=== PATIENT | female | born 1995 | race Caucasian/White ===

== ENCOUNTER → 2022-05-27 15:34 | Outpatient (BNVA) | payer OTHER, SELFPAY | PROVIDERS: Visit Provider Physician Assistant Surgical ==

== ENCOUNTER → 2022-06-06 15:08 | Outpatient (BNVA) | payer OTHER, SELFPAY | PROVIDERS: PCP Internal Medicine; Visit Provider Physician Assistant Surgical | DX: E66.01 Morbid (severe) obesity due to excess calories (principal); Z68.41 Body mass index [BMI] 40.0-44.9, adult | CPT/HCPCS: 99202 ==

== ENCOUNTER → 2022-06-22 14:19 | Outpatient (BNVA) | payer OTHER, SELFPAY | PROVIDERS: PCP Internal Medicine; Visit Provider Dietitian, Registered | DX: E66.01 Morbid (severe) obesity due to excess calories (principal); Z71.3 Dietary counseling and surveillance | CPT/HCPCS: 97802 ==

== ENCOUNTER 2022-06-27 14:27 | Outpatient (REF) | payer OTHER, SELFPAY ==
[2022-06-27 16:14] LABS: MANUAL DIFF FLAG NO
[2022-06-27 16:22] LABS: Basophils Absolute Auto 0.1 X10*3/uL (0.0-0.2); Basophils Percent Auto 0.6 % (0-2); Eosinophils Absolute Auto 0.3 X10*3/uL (0.0-0.4); Hematocrit 41.5 % (37.0-47.0); Hemoglobin 13.5 g/dl (12.0-16.0); Imm Gran Abs Auto 0.03 X10*3/uL (0.00-0.03); Imm Gran Pct Auto 0.3 % (0.0-0.4); Lymphocytes Absolute Auto 3.1 X10*3/uL (1.2-4.9); Lymphocytes Percent Auto 28.7 % (20-40); Mean Corpuscular HGB Conc 32.5 g/dl (31.0-35.0); Mean Corpuscular Hemoglobin 27.4 pg (27.0-33.0); Mean Corpuscular Volume 84.3 fL (80.0-98.0); Mean Platelet Volume 9.7 fL (9.4-12.3); Monocytes Absolute Auto 0.9 X10*3/uL (0.1-1.2); Monocytes Percent Auto 7.9 % (2-11); Neutrophils Absolute Auto 6.4 x10*3/uL (2.0-8.3); Neutrophils Percent Auto 59.5 % (45-73); Platelet Count 417 X10*3/uL (160-400); Red Blood Count 4.92 X10*6/uL (4.20-5.50); Red Cell Distribution Width 13.6 % (11.0-16.0); White Blood Count 10.8 X10*3/uL (4.8-10.8)
[2022-06-27 16:30] LABS: Estimated Average Glucose 88 mg/dL; Hemoglobin A1c % 4.7 %
[2022-06-27 17:46] LABS: Alanine Aminotransferase 17 U/L (0-31); Albumin Level 4.3 g/dL (3.5-5.0); Alkaline Phosphatase 90 U/L (39-117); Anion Gap 13 (12-20); Aspartate Amino Transferase 17 U/L (5-31); Bilirubin Total 0.9 mg/dL (0.0-1.0); Blood Urea Nitrogen 13 mg/dL (9-16); C Reactive Protein 1.09 mg/dL (< or = 0.50); Calcium 9.6 mg/dL (8.4-10.2); Carbon Dioxide 26 mmol/L (22-29); Chloride 106 mmol/L (96-108); Cholesterol 179 mg/dL; Estimated Glomerular Filt Rate > 60; Glucose Random 86 mg/dL (60-115); HDL Cholesterol 42 mg/dL; Iron 40 mcg/dL (30-160); LDL Cholesterol Calculated 128 mg/dl; Percent Iron Saturation 11 % (15-50); Potassium 4.3 mmol/L (3.3-5.1); Sodium 141 mmol/L (135-145); Total Iron Binding Capacity 361 mcg/dL (228-428); Total Protein 7.1 g/dL (6.5-8.0); Triglycerides 46 mg/dL; Unsaturated Iron Binding 321 ug/dL
[2022-06-27 18:13] LABS: Ferritin 38 ng/mL (10-122); Folate 16.1 ng/mL (> or = 4.0); Insulin 6 uU/mL (2-29); TSH reflex Free T4 0.82 uIU/mL (0.32-4.0); Vitamin B12 744 pg/mL (200-900); Vitamin D 25-OH Total 27.2 ng/mL (>30)
[2022-06-28 15:28] LABS: H Pylori Breath Test Negative (Negative)
[2022-06-29 14:28] LABS: Calcium (PTHI) 9.9 mg/dL (8.6-10.2); PTHI 35 pg/mL (16-77)
[2022-07-01 01:44] LABS: Zinc 61 mcg/dL (60-130)
[2022-07-02 01:05] LABS: Vitamin A 38 mcg/dL (38-98)
[2022-07-02 15:39] LABS: Vitamin B1 9 nmol/L (8-30)
== END 2022-06-27 14:28 | disposition home or self-care (01) ==
LOC: HO.LAB 14:27
PROVIDERS: Visit Provider Physician Assistant Surgical
DX: Z01.818 Encounter for other preprocedural examination (principal); E66.01 Morbid (severe) obesity due to excess calories; Z71.3 Dietary counseling and surveillance; Z68.41 Body mass index [BMI] 40.0-44.9, adult
CPT/HCPCS: 36415; 80053; 80061; 82306; 82607; 82728; 82746; 83013; 83036; 83525; 83540; 83970; 84425; 84443; 84590; 84630; 85025; 86140; 99211; 99212

== ENCOUNTER 2022-06-29 13:53 | Outpatient (REF) | payer OTHER, SELFPAY ==
--- NOTE | ~2022-06-29 | XR_ITS ---
EXAMINATION: XR CHEST CLINICAL INFORMATION: Morbid/severe obesity due to excess calories COMPARISON: None available. TECHNIQUE: 2 views of the chest were obtained. FINDINGS: No significant abnormality is noted involving the heart, lungs, mediastinum, bony thorax or soft tissues. XR/XR chest 2V IMPRESSION: Unremarkable chest examination.
--- NOTE | 2022-06-29 14:51 | ECG_ITS ---
Test Reason : obesity Blood Pressure : / mmHG Vent. Rate : 065 BPM Atrial Rate : 065 BPM P-R Int : 112 ms QRS Dur : 076 ms QT Int : 422 ms P-R-T Axes : 014 020 -04 degrees QTc Int : 438 ms Normal sinus rhythm Normal ECG When compared with ECG of 28-SEP-2014 16:21, Vent. rate has decreased BY 41 BPM Referred By: Juan Mkai Electronically Signed By:Glenn Lemon
== END 2022-06-29 13:54 | disposition home or self-care (01) ==
LOC: HO.XRAY 13:53
PROVIDERS: Visit Provider Physician Assistant Surgical
DX: E66.01 Morbid (severe) obesity due to excess calories (principal)
CPT/HCPCS: 71046; 93005

== ENCOUNTER → 2022-07-06 11:58 | Outpatient (BNVA) | payer OTHER, SELFPAY | PROVIDERS: Referring Provider Physician Assistant Surgical; Visit Provider Counselor Mental Health ==

== ENCOUNTER 2022-08-02 08:10 | Outpatient (REF) | payer OTHER, SELFPAY ==
--- NOTE | ~2022-08-02 | FL_ITS ---
EXAMINATION: XR FLUOROSCOPY UPPER GI WITH AIR CLINICAL INFORMATION: Morbid/severe obesity due to excess calories COMPARISON: None available. TECHNIQUE: Routine upper GI air-contrast study was performed in upright and lying position. FINDINGS: Following oral administration of thick barium and effervescent granules is normal antegrade propagation bolus from the oral cavity through the pharynx, esophagus into stomach without any evidence of obstruction, narrowing or stricture. On placing patient supine and prone lying the course, caliber and peristalsis of the stomach, duodenal bulb and the sweep is normal. There is large gastroesophageal reflux and a small sliding hiatal hernia. The mucosal pattern of the stomach, duodenal bulb and sweep is normal. A moderate FLUOROSCOPY TIME: 1.6 minutes DOSE AREA PRODUCT: 179.584 uGy-m2 (microgray-meter squared) FL/FL upper GI w air IMPRESSION: Moderate gastroesophageal reflux and a small hiatal hernia.
--- NOTE | ~2022-08-02 | US_ITS ---
EXAMINATION: US COMPLETE ABDOMEN WITH LIVER ELASTOGRAPHY CLINICAL INFORMATION: Obesity COMPARISON: None available. TECHNIQUE: Real-time imaging of the abdominal viscera. Noninvasive ultrasound liver fibrosis assessment is performed using Ming ElastPQ point quantification shear wave elastography (2D-SWE) with a C5-2 MHz transducer. Multiple elastography samples are obtained. FINDINGS: PANCREAS: Normal. ABDOMINAL AORTA: The proximal, middle, and distal aortic segments are normal in caliber. INFERIOR VENA CAVA: Visualized portions are normal. LIVER: Liver echotexture is slightly increased. The liver is normal in size and contour. No focal lesion or intrahepatic biliary duct dilatation. The right lobe measures 18 cm in length. The left lobe measures 14 cm in length. Portal flow is normal/hepatopedal Shear wave liver elastography median stiffness is 1.3 m/s (reference: normal median stiffness is 1.3 m/s or less). IQR/median stiffness to assess sampling precision is 0.07 (reference: good quality data set is IQR/median stiffness of 0.15 or less). GALLBLADDER: Normal. The gallbladder is physiologically distended without evidence of stones, sludge, polyps, wall thickening or pericholecystic fluid. COMMON BILE DUCT: Normal in caliber measuring 0.1 cm in diameter. RIGHT KIDNEY: Normal. No hydronephrosis. No renal calculi or focal parenchymal lesions. The kidney measures 11 cm in maximum dimension. LEFT KIDNEY: Normal. No hydronephrosis. No renal calculi or focal parenchymal lesions. The kidney measures 12 cm in maximum dimension. SPLEEN: Slightly enlarged. The spleen measures 14 cm in maximum dimension. FREE FLUID: None. US/US abdomen comp w elastography IMPRESSION: 1. Impression: Slightly echogenic liver probably representing fatty infiltration. Slightly enlarged spleen. 2. Liver elastography: Adequate liver sampling. Normal liver stiffness. REFERENCE: Society of Radiologists in Ultrasound Liver Stiffness Thresholds (2020): LIVER STIFFNESS THRESHOLDS: *Liver Stiffness equal or less than 1.3 m/s: High probability of being normal. *Liver Stiffness less than 1.7 m/s: In the absence of other known clinical signs, rules out compensated advanced chronic liver disease. *Liver Stiffness 1.7-2.1 m/s: Suggestive of compensated advanced chronic liver disease but need further test for confirmation. *Liver Stiffness over 2.1 m/s: Rules in compensated advanced chronic liver disease. *Liver Stiffness over 2.4 m/s: Suggestive of clinically significant portal hypertension. QUALITY OF DATA SET: *IQR/Median value equal or less than 0.15 implies a quality data set. *IQR/Median value over 0.15 implies a poor quality data set. SIGNIFICANT CHANGE FROM PRIOR EXAM: Significant change if liver stiffness measurement is 10% or greater from prior exam. OTHER CONSIDERATIONS: The stage of liver fibrosis may be overestimated in the setting of acute hepatitis, liver inflammation, elevated liver function tests, hepatic vascular congestion, obstructive cholestasis, non-fasting state, and infiltrative diseases such as amyloidosis and lymphoma. In some patients with NAFLD, the liver stiffness thresholds for compensated advanced chronic liver disease may be lower. In causes other than viral hepatitis and NAFLD, liver stiffness thresholds are not well established.
== END 2022-08-02 08:11 | disposition home or self-care (01) ==
LOC: HO.US 08:10
PROVIDERS: Visit Provider Physician Assistant Surgical
DX: Z01.818 Encounter for other preprocedural examination (principal); E66.01 Morbid (severe) obesity due to excess calories; K21.9 Gastro-esophageal reflux disease without esophagitis
CPT/HCPCS: 74246; 76705; 76981

== ENCOUNTER → 2022-08-11 12:02 | Outpatient (BNVA) | payer OTHER, SELFPAY | PROVIDERS: Visit Provider Physician Assistant Surgical | DX: E66.01 Morbid (severe) obesity due to excess calories (principal); Z68.41 Body mass index [BMI] 40.0-44.9, adult | CPT/HCPCS: 99212 ==

== ENCOUNTER → 2022-08-15 14:52 | Outpatient (BNVA) | payer OTHER, SELFPAY | PROVIDERS: Visit Provider Dietitian, Registered | DX: E66.01 Morbid (severe) obesity due to excess calories (principal) | CPT/HCPCS: 97803 ==

== ENCOUNTER → 2022-08-22 11:30 | Outpatient (BNVA) | payer OTHER, SELFPAY | PROVIDERS: Visit Provider Counselor Mental Health ==

== ENCOUNTER → 2022-09-05 13:39 | Outpatient (BNVA) | payer OTHER, SELFPAY | PROVIDERS: Visit Provider Physician Assistant Surgical | DX: E66.9 Obesity, unspecified (principal); Z68.39 Body mass index [BMI] 39.0-39.9, adult | CPT/HCPCS: 99212 ==

== ENCOUNTER 2022-11-16 08:19 | Outpatient (AMB) | payer OTHER, SELFPAY ==
--- NOTE | 2022-11-16 10:13 | A.OFFVIS_ITS ---
Intake VS Expanded 11/16/22 10:37 Height 5 ft 1.5 in Weight 212 lb BMI 39.4 Body Fat 109.6 Body Fat Percentage 51.7 Free Fat Mass 102.4 Visceral Mass 21 Water Mass 70.1 BMR 1,374 Intake Visit Reasons: TV Consult/Transfer Juan Allergies No Known Allergies [No Known Allergies*] Allergy (Verified 11/16/22 10:13) Medication List - Last Reconciled 11/16/22 by Ace Mac MD HPI TV Consult/Transfer Juan HPI Details Start time: 10.04am, End time: 10.44am ?I spent 35 minutes speaking with the patient on the phone plus an additional 5 minutes reviewing and updating records for a total of 40 minutes HPI Comments History of Present Illness Details Overall weight loss: 23.2lbs, or 9.86% TBWL Is doing 2-3 Orgain protein shakes (1 scoop each in 8oz almond milk), 1 Zone Perfect protein bar and one meal (8 forks of protein and 8 forks of salad or vegetables) Exercise: walking outside for 30-60min PFSH Surgical History Hx of section Hx of oral surgery Family History Mother No problems noted. Father High cholesterol Sister No problems noted. Brother No problems noted. Daughter No problems noted. Daughter No problems noted. Social History Alcohol intake: never Patient Tobacco Use Status: Never used Tobacco Physical Exam Vital Signs: BMI result Body Mass Index 39.4 Assessment & Plan Assessment & Plan (1) Morbid obesity: Code(s): E66.01 - Morbid (severe) obesity due to excess calories Plan: 1. Plan for lap sleeve gastrectomy including upper GI endoscopy. All tests has been completed and reviewed and the patient is cleared for the surgery. ?If diaphragmatic or ventral hernias are present at time of surgery, these will be repaired laparoscopically as well. Risks and complications were discussed in detail including possible conversion to an open procedure, anastomotic leak, bleeding requiring transfusion, small bowel obstruction, , DVT and pulmonary embolism, cardiac, or pulmonary complications, as senior care complications such as anastomotic ulcer, insufficient weight loss and vitamin deficiencies. I emphasized the importance of close follow-up, adherence to instructions and good communication. So far she has proven to be an excellent communicator and very compliant with all our directions accomplishing a great weight loss. I believe that she is an excellent candidate and she is ready. 2. Change nutritional plan to 2 Orgain protein shakes (1 scoop each in 8oz almond milk), 1 Zone Perfect protein bar and one meal (8 forks of protein and 8 forks of salad or vegetables) AND one more Zone Perfect protein bar after dinner 3. Exercise: continue walking outside. Goal is to burn 2000 calories per week on exercise, which means either 300 calories daily, or 400 calories 5 days per week, or 500 calories 4 days per week, or 650 calories 3 days per week. 4. Alternatively purchase a stationary bike, elliptical or treadmill at home that can track calories. Let me know if you do so I can give you an exercise plan. 5. Send me weight measurements weekly on Wednesdays Telehealth Telehealth Location of provider rendering services: practice address Location of patient: address on file Patient Identification confirmed using: Name, : Yes Telehealth method: voice only Patient verbally consented to treatment: Yes Patient verbally consented to billing insurance company: Yes Patient informed of any privacy concerns related to visit: Yes Minutes spent on Phone/Video with Pt.: 40 Coding Level of Care Code Tele Est Pt Level 4 (86339) Diagnoses Morbid obesity E66.01 Time Spent (min) 40
[2022-11-16 10:37] VITALS: BMI 39.4
== END 2022-11-16 10:45 | disposition home or self-care (01) ==
LOC: HO.HBS 08:19
PROVIDERS: Visit Provider Surgery
DX: E66.01 Morbid (severe) obesity due to excess calories (principal)
CPT/HCPCS: 99214

== ENCOUNTER → 2022-11-16 08:19 | Outpatient (BNVA) | payer OTHER, SELFPAY | PROVIDERS: Visit Provider Surgery ==

== ENCOUNTER → 2023-01-10 13:41 | Outpatient (BNVA) | payer OTHER, SELFPAY | PROVIDERS: Visit Provider Physician Assistant Surgical ==

== ENCOUNTER 2023-01-12 10:33 | Outpatient (AMB) | payer OTHER, SELFPAY ==
--- NOTE | 2023-01-12 10:46 | MHC.WMTHER ---
Intake Intake Visit Reasons: VIDEO f/u Allergies No Known Allergies [No Known Allergies*] Allergy (Verified 01/10/23 13:52) PFSH Surgical History Hx of section Hx of oral surgery Family History Mother No problems noted. Father High cholesterol Sister No problems noted. Brother No problems noted. Daughter No problems noted. Daughter No problems noted. Social History Alcohol intake: never Patient Tobacco Use Status: Never used Tobacco Behavioral Health Assessment Weight Management Therapy Therapy Notes Details Pt stated that was off track for a few months, she realized that she started binge eating and emotionally eating again, really believes it to be important to address that symptom so that she can be successful. Often times, pt reported that she doesnt even know what she is feeling and why she is doing it. Completed body scan exercise and light stream, she identified how overwhelmed, heavy, and tense she feels, in her chest, neck, shoulders and back. Reported improvement after completing visualization breathing technique. Also talked about where she is keeping these snack foods she eats, some are right on her counter in glass containers. Patient was suggested to remove all foods from eye level or in focus that she does not want to eat. Patient reported looking to have weight loss surgery to help improve her health and quality of life. Pt reported 6 months ago she was staking medication for depression but stopped it because she did not find it helpful. She reported that she is always tired, miserable, irritable, freaks out easily when overwhelmed . She reported depression and anxiety since age 17. Pt stated that she does feel more motivation since starting the program here. She has no history of inpatient psychiatric admissions or problems with drugs or alcohol. Patient denied ever being in therapy in the past or currently. No history of self harming behaviors or suicide attempts. Pt also reported current and history of depression. Presenting Concerns Referral Source provider Reason for referral weight loss surgery evaluation Precipitating Event obesity Living Situation Current Living Situation Own At risk of losing current housing? No Satisfied with current living situation? Yes Comments Pt lives with her 4 year old and 8 month old daughters and her boyfriend. Food/Weight/Diet Expectations of change weight loss and maintenance History/Relationship with food She reported using food for comfort when sad, angry, mad, depressed etc. Usually [employer], frozen meals, some fresh foods. She reported eating breakfast, then nothing all day and then would binge at night. Also 2-3x's a week of fast food. History/Relationship with weight Pt stated that in high school she was 135lbs and then has been overweight for the last few years. Prior to having her first child she was 160lbs. History/Relationship with dieting worked with [employer] last year which helped at the time. Binge Eating Do you frequently eat large amounts of food in short periods of time, not feeling physically hungry? Yes Do you feel out of control when you eat a large amount of food in a short period of time? Yes Do you eat large amounts of food rapidly and typically alone? Yes Night Eating Do you wake up at least once during the night to eat? No If you wake up in the night, do you find that it is necessary to eat something in order to fall back asleep? No Do you have little or no appetite in the morning and feel very hungry in the evening, often overeating between dinner and when you go to bed? No Social History Family history and relationship Pt is one of three siblings, she is the youngest, born in [place] and raised in [place] by her mother and father. They when she was around 6 years old. She reported having a good childhood. Parental/Familial supervisor bonding obligations two young children Developmental history and status no issues known Social support boyfriend, mom, friend Marti Cultural/Ethnic information Legal Involvement and History Current or historical involvement with the legal system? none Education Highest grade completed high school and hair school Preferred learning style Auditory, Verbal, Written, Learn by doing and Visual Currently enrolled in educational program? No Interested in further educational program? No Educational Interests/Skills Pt works as a chairman ceo three days a week. Employment Employment Status [employer] Wants help to find employment? No Meaningful activities working out, walking Financial Situation Describe current financial situation Occasional struggle Financial assistance? Food [place] Service Service? No Mental Health and Addiction Treatment Current/Past substance abuse? No Current/Past addictive behavior concerns? No Medical and Physical Health Summary Physical exam in the last year? Yes Pain Screening Current pain? No Pain in the last few months? No Medications Is the patient compliant with medications? Not applicable Does the patient have Panchal Guardian in place? Not applicable Does the patient use complimentary health approaches? No Trauma/Abuse History History of trauma? No Assessment & Plan Assessment & Plan (1) Major depressive disorder, recurrent, moderate: Code(s): F33.1 - Major depressive disorder, recurrent, moderate (2) Anxiety: Code(s): F41.9 - Anxiety disorder, unspecified (3) Morbid obesity: Code(s): E66.01 - Morbid (severe) obesity due to excess calories Plan Patient reported some depression and anxiety, has never been in therapy and could benefit from it to help reduce and cope with symptoms. She reported struggling with emotional eating since childhood. Patient does not present with any severe mental health symptoms. She is cleared for surgery when ready. She will be seen again. Telehealth Telehealth Location of provider rendering services: other Location of patient: address on file Patient Identification confirmed using: Name, : Yes Telehealth method: video Patient verbally consented to treatment: Yes Patient verbally consented to billing insurance company: Yes Patient informed of any privacy concerns related to visit: Yes Minutes spent on Phone/Video with Pt.: 35 Coding Level of Care Code Tele Psytx 30 mins (10653) Diagnoses Major depressive disorder, recurrent, moderate F33.1 Anxiety F41.9 Morbid obesity E66.01 Time Spent (min) 35
== END 2023-01-12 10:46 | disposition home or self-care (01) ==
LOC: HO.HBST 10:33
PROVIDERS: Visit Provider Counselor Mental Health
DX: F33.1 Major depressive disorder, recurrent, moderate (principal); F41.9 Anxiety disorder, unspecified; E66.01 Morbid (severe) obesity due to excess calories
CPT/HCPCS: 90832

== ENCOUNTER → 2023-01-12 10:33 | Outpatient (BNVA) | payer OTHER, SELFPAY | PROVIDERS: Visit Provider Counselor Mental Health ==